=== PATIENT | female | born 1990 | race Caucasian/White ===

== ENCOUNTER 2022-10-05 10:29 | Outpatient (CLI) | payer OTHER, SELFPAY ==
[2022-10-05 11:34] LABS: Clue Cells No Clue Cells Seen (None Seen); Trichomonas No Trichomonas Seen (None Seen); Yeast No Yeast Seen (None Seen)
[2022-10-05 12:47] LABS: Cholesterol* 195 mg/dL (90-199)
[2022-10-05 12:48] LABS: HDL Cholesterol* 78 mg/dL (>=50); LDL Cholesterol Calculated 106 mg/dL (<100); Triglycerides* 55 mg/dL (40-149)
[2022-10-05 12:58] LABS: INR 0.92 (0.91-1.10)
[2022-10-05 12:59] LABS: Partial Thromboplastin Time* 33 Seconds (23-33)
[2022-10-05 13:10] LABS: Vitamin D 25 Hydroxy* 28 ng/mL (30-80)
[2022-10-05 13:23] LABS: Hepatitis B Surface Antigen* Negative (Negative)
[2022-10-05 13:33] LABS: HIV 1/2/P24 Combo Screen* Negative (Negative)
[2022-10-05 13:41] LABS: Hepatitis C Virus Antibody* Negative (Negative)
[2022-10-05 20:57] LABS: Chlamydia DNA Amplified* NOT DETECTED (No Detected); GC DNA Amplified* NOT DETECTED (No Detected)
[2022-10-08 02:25] LABS: Rapid Plasma Reagin (RPR) Non Reactive (Non Reactive)
[2022-10-10 22:00] LABS: von WillebrandFactorAntigen 89 % (52-214); vonWillebrandFactorActivityRCF 108 % (51-215)
== END 2022-10-05 10:30 | disposition home or self-care (01) ==
PROVIDERS: PCP Dermatology; Visit Provider Registered Nurse
DX: R03.0 Elevated blood-pressure reading, without diagnosis of hypertension (principal); R53.83 Other fatigue; Z11.4 Encounter for screening for human immunodeficiency virus [HIV]; R58 Hemorrhage, not elsewhere classified; R23.3 Spontaneous ecchymoses; Z11.3 Encounter for screening for infections with a predominantly sexual mode of transmission
CPT/HCPCS: 80061; 82306; 84443; 85240; 85245; 85246; 85610; 85730; 86592; 86703; 86803; 87210; 87340; 87491; 87591

== ENCOUNTER 2022-10-11 18:18 | Emergency (ER) | payer OTHER, SELFPAY ==
[2022-10-11] VITALS (8 sets, daily range): BP systolic 129–153; BP diastolic 85–98; PULSE 88–98; RESP 16; TEMP 36.8; O2SAT 97–100; BMI 26.7
--- NOTE | 2022-10-11 19:38 | ED.ABDPAIN ---
HPI - Abdominal Pain General Time Seen by Provider: 19:38 Date Seen: 10/11/22 Chief Complaint: Abdominal Pain Stated Complaint: Severe lower abdomen pain Time Seen by Provider: 10/11/22 18:27 Source: patient, RN notes reviewed and old records reviewed Mode of arrival: ambulatory Limitations: no limitations History of Present Illness HPI narrative: Dylan is a very pleasant 32-year-old female with history of 1 year ago who comes to the emergency room with lower abdominal pain times 36 hours. Patient noted the onset of right lower quadrant pain yesterday morning. It persisted throughout the day waxing and waning and even awoke her overnight last night. She comes in today as it continues to worsen. It is associated with nausea although she has been able to eat. It is also associated with a small amount of nonbloody diarrhea and a significant amount of burping and abdominal gas. Patient states that she does feel bloated. She has not had history of abdominal problems in the past. She denies dysuria or hematuria or recent fever. She rates her pain a 7/10 right now. She has not taken anything for discomfort. Her period ended 1 week ago. She is not on control. Movement and pressing on the abdomen appears to increase her discomfort. Patient states she does have a history of ovarian cyst. Related Data Home Medications Medication Instructions Recorded Confirmed biotin PO QDAY 10/07/22 10/07/22 melatonin 10 mg capsule 10 mg PO QHS 10/07/22 10/07/22 Allergies Allergy/AdvReac Type Severity Reaction Status Date / Time house dust AdvReac Intermediate Verified 10/11/22 21:42 Cultivated oat pollen AdvReac Intermediate Uncoded 10/11/22 21:42 Review of Systems Status of ROS Reports: 10 or more systems reviewed and unremarkable except as noted in History and below Const Denies: fever or chills Eyes Denies: change in vision ENMT Denies: throat pain, neck pain, throat swelling or difficulty swallowing Cardio Denies: shortness of breath with exertion Resp Denies: shortness of breath, cough or wheezing GI Reports: abdominal pain, nausea, bloating and excessive passing of gas; Denies: vomiting, diarrhea or difficulty swallowing Denies: painful urination, urinary frequency or urinary urgency Musculo Denies: back pain, neck pain or extremity pain Integ/Breast Denies: rash Neuro Denies: headache Allergy/Immuno Denies: throat swelling or wheezing PFSH PFSH Medical History Anemia Female infertility Major depression, recurrent Migraines Preeclampsia Surgical History S/P section Family History Mother High blood pressure Family/Other Leukemia Maternal Grandmother High blood pressure Social History Narrative: , no kids Smoking Status: Never smoker Little interest or pleasure in doing things: not at all Feeling down, depressed, or hopeless: more than half the days Exam Narrative: Exam Narrative: Dylan is alert and oriented. She does have some nervousness. She is very pleasant well-spoken. Eyes are clear oral cavity with moist mucous membranes. Clearly visualized posterior oropharynx. Dentition is intact. Neck is supple without lymphadenopathy. Heart with regular rate and rhythm. Lungs are clear in all lung [place]. Abdomen is soft that there is no distension. Bowel sounds are present. She does have right lower quadrant tenderness and rebound is present. She has pain in her right lower quadrant with straight leg Reg raise and internal external rotation of the hip. Moving all extremities otherwise. Const: Vital Signs, click to edit/add: Vital Signs - 24 hr 10/11/22 18:41 10/11/22 20:04 10/11/22 19:54 Temperature 98.2 F Pulse Rate 98 Pulse Rate [Left P ulse Oximeter] 88 Respiratory Rate 16 16 Blood Pressure 153/97 H Blood Pressure [Ri ght Upper Arm] 150/93 H Pulse Oximetry 99 100 98 Oxygen Delivery Me thod Room Air 10/11/22 20:02 10/11/22 20:31 10/11/22 22:05 Temperature Pulse Rate 91 92 91 Pulse Rate [Left P ulse Oximeter] Respiratory Rate 16 16 16 Blood Pressure 142/98 H 140/94 H 130/91 H Blood Pressure [Ri ght Upper Arm] Pulse Oximetry 100 100 100 Oxygen Delivery Me thod 10/11/22 22:18 10/11/22 22:32 10/12/22 00:05 Temperature 98.2 F Pulse Rate 94 84 Pulse Rate [Left P ulse Oximeter] Respiratory Rate 16 16 Blood Pressure 129/85 135/78 Blood Pressure [Ri ght Upper Arm] Pulse Oximetry 97 97 Oxygen Delivery Me thod 10/12/22 00:31 10/12/22 00:35 Temperature 98.2 F 97.9 F Pulse Rate Pulse Rate [Left P ulse Oximeter] 88 Respiratory Rate 16 Blood Pressure Blood Pressure [Ri ght Upper Arm] 150/93 H Pulse Oximetry Oxygen Delivery Me thod Documenting provider has reviewed patient's vital signs: yes Course Course Hospital Course: Differential diagnosis includes but is not limited to ectopic , appendicitis, colitis, ureteral colic, ovarian torsion, ovarian cyst. UTI. Patient is highly suspicious for appendicitis at this time. Will have an IV placed and patient will be given normal saline and Zofran. She declines any pain medications at this time. Will check CBC, comprehensive, CRP, urinalysis, hCG. Will wait for negative hCG prior to CT of the abdomen and pelvis. Reevaluation(s) Reevaluation #1: Patient is informed that CT of the abdomen is normal. I was very surprised after patient's history and exam findings. At this time will order pelvic ultrasound. Patient is receptive to Toradol 15 mg IV at this time. Reevaluation #2: Patient had relief with Toradol 15 mg. Discussed with patient hemorrhagic cyst of right ovary noted on ultrasound. Vital Signs Vital signs: Initial Vital Signs Temperature 98.2 F 10/11/22 18:41 Temperature Source Temporal Artery Scan 10/11/22 18:41 Pulse Rate 88 10/11/22 18:41 Pulse Rhythm 10/11/22 18:41 Pulse Strength 3+ Normal 10/11/22 18:41 Respiratory Rate 16 10/11/22 18:41 Blood Pressure 150/93 H 10/11/22 18:41 Blood Pressure Mean 112 10/11/22 18:41 Blood Pressure Position Sitting 10/11/22 18:41 Pulse Oximetry 99 10/11/22 18:41 Oxygen Delivery Method 10/11/22 18:41 Vital Signs Temperature 98.2 F 10/11/22 18:41 Pulse Rate 88 10/11/22 18:41 Respiratory Rate 16 10/11/22 18:41 Blood Pressure 150/93 H 10/11/22 18:41 Pulse Oximetry 99 10/11/22 18:41 Oxygen Delivery Method 10/11/22 18:41 Temperature 97.9 F 10/12/22 00:35 Pulse Rate 88 10/12/22 00:31 Respiratory Rate 16 10/12/22 00:31 Blood Pressure 150/93 H 10/12/22 00:31 Pulse Oximetry 97 10/12/22 00:05 Oxygen Delivery Method 10/11/22 18:41 MDM - Abdominal Pain MDM Narrative Medical decision making narrative: 1. Abdominal pain- patient had normal CT in spite of symptoms and exam suggestive of appendicitis. Given intensity of discomfort did proceed with ultrasound of pelvis that showed a 1.7 cm complex cyst of the right ovary thought to be hemorrhagic in nature. There was no free fluid in the abdomen. Patient is feeling better after Toradol. Will discharge her home at this time. She may use ibuprofen every 8 hours as needed for discomfort. She declines any stronger pain medication at this time. Note that she does also show me recent lab values including a negative GC and chlamydia at her well-woman check. She denies any vaginal discharge. She has been experiencing diarrhea and this may be a small focal colitis not noted on CT that is causing her the discomfort. I have advised her to return for increasing fever increasing pain and as needed. 2. Disposition -Home at this time. Return as needed. Medical Records Attestation: I reviewed the patient's medical records. Lab Data Attestation: I reviewed the patient's lab results. Labs: Lab Results 10/11/22 10/11/22 10/11/22 Range/Units 19:40 19:50 19:50 WBC 12.49 H (4.50-11.00) K/uL RBC 4.22 (4.00-5.20) m/uL Hgb 13.3 (12.0-16.0) gm/dL Hct 39.4 (33.0-51.0) % MCV 93 (80-100) fL MCH 32 (26-34) pg MCHC 34 (32-36) gm/dL RDW Coeff of [place] 12.5 (11.5-15.5) % Plt Count 272 (140-440) K/uL Neut % (Auto) 73.3 H (42.0-72.0) % Lymph % (Auto) 19.1 L (20-44) % [place] % (Auto) 6.5 (0.0-11.0) % Eos % (Auto) 0.7 (0.0-7.0) % Baso % (Auto) 0.2 (0.0-3.0) % Neut # (Auto) 9.20 H (1.7-7.0) K/uL Lymph # (Auto) 2.40 (0.90-2.90) K/uL [place]ike # (Auto) 0.80 (0.00-0.90) K/UL Eos # (Auto) 0.10 (0.00-0.50) K/uL Baso # (Auto) 0.00 (0.00-0.30) K/uL Sodium (135-149) mmol/L Potassium (3.6-5.1) mmol/L Chloride (96-114) mmol/L Carbon Dioxide (20-32) mmol/L BUN (5-24) mg/dL Creatinine (0.5-1.5) mg/dL Estimated Creat Clear Estimated GFR ml/min Glucose (60-115) mg/dL Calcium (8.4-10.6) mg/dL Total Bilirubin (0.1-1.5) mg/dL AST (12-35) U/L ALT (4-35) U/L Alkaline Phosphatase (40-150) U/L C-Reactive Protein (0.5-1.0) mg/dL Total Protein (6.0-8.3) g/dL Albumin (3.3-5.0) g/dL Urine Color Yellow (Yellow) Urine Appearance Clear (Clear) Urine pH 6.0 (5.0-8.5) Ur Specific [place] 1.020 (1.000-1.030) Urine Protein Negative (Negative) Urine Glucose (UA) Negative (Negative) Urine Ketones Negative (Negative) Urine Blood Negative (Negative) Urine Nitrite Negative (Negative) Urine Bilirubin Negative (Negative) Urine Urobilinogen 0.2 (0.2-1.0) Ur Leukocyte Esterase Negative (Negative) Urine HCG, Qual Negative (Negative) 10/11/22 Range/Units 19:50 WBC (4.50-11.00) K/uL RBC (4.00-5.20) m/uL Hgb (12.0-16.0) gm/dL Hct (33.0-51.0) % MCV (80-100) fL MCH (26-34) pg MCHC (32-36) gm/dL RDW Coeff of [place] (11.5-15.5) % Plt Count (140-440) K/uL Neut % (Auto) (42.0-72.0) % Lymph % (Auto) (20-44) % [place] % (Auto) (0.0-11.0) % Eos % (Auto) (0.0-7.0) % Baso % (Auto) (0.0-3.0) % Neut # (Auto) (1.7-7.0) K/uL Lymph # (Auto) (0.90-2.90) K/uL [place] # (Auto) (0.00-0.90) K/UL Eos # (Auto) (0.00-0.50) K/uL Baso # (Auto) (0.00-0.30) K/uL Sodium 141 (135-149) mmol/L Potassium 3.4 L (3.6-5.1) mmol/L Chloride 105 (96-114) mmol/L Carbon Dioxide 25 (20-32) mmol/L BUN 10 (5-24) mg/dL Creatinine 0.7 (0.5-1.5) mg/dL Estimated Creat Clear 92.10 Estimated GFR 119 ml/min Glucose 103 (60-115) mg/dL Calcium 9.2 (8.4-10.6) mg/dL Total Bilirubin 0.5 (0.1-1.5) mg/dL AST 26 (12-35) U/L ALT 19 (4-35) U/L Alkaline Phosphatase 71 (40-150) U/L C-Reactive Protein 0.8 (0.5-1.0) mg/dL Total Protein 8.1 (6.0-8.3) g/dL Albumin 4.7 (3.3-5.0) g/dL Urine Color (Yellow) Urine Appearance (Clear) Urine pH (5.0-8.5) Ur Specific [place] (1.000-1.030) Urine Protein (Negative) Urine Glucose (UA) (Negative) Urine Ketones (Negative) Urine Blood (Negative) Urine Nitrite (Negative) Urine Bilirubin (Negative) Urine Urobilinogen (0.2-1.0) Ur Leukocyte Esterase (Negative) Urine HCG, Qual (Negative) Imaging Data CT scan - abdomen: Attestation: I have reviewed the pertinent imaging results. Radiologist's impression: Liver: Unremarkable. Normal in size and attenuation. No suspicious masses. Gallbladder and bile ducts: Unremarkable. No stones or inflammation. No biliary dilatation. Pancreas: Unremarkable. No mass or inflammation. Spleen: Unremarkable. Normal in size. No masses. Adrenal glands: Unremarkable. No nodules. Kidneys: Unremarkable. No suspicious masses, stones, or hydronephrosis. GI tract: Unremarkable. Normal in caliber. No sign of inflammation. Normal appendix. Vasculature: Abdominal aorta is normal in caliber. Mesenteric arteries are patent. Lymph nodes: No lymphadenopathy. Peritoneum/Abdominal Wall: Unremarkable. No free air or free fluid. Pelvis: Unremarkable. Bones: Unremarkable for age. IMPRESSION: Unremarkable CT of the abdomen and pelvis. No acute findings or findings to explain the patient`s abdominal pain. Pelvic ultrasound: Attestation: I have reviewed the pertinent imaging results. Radiologist's impression: Uterus: Anteverted uterus measuring 8.5 x 3.5 x 5.2 cm. Homogeneous echotexture. No suspicious lesion.? Endometrium: Endometrial stripe measures 8 mm in thickness.? No endometrial polyp or mass identified.? Right ovary: Measures 3.3 x 2.0 x 2.7 cm. Intact blood flow. Right ovarian heterogeneous cystic appearing lesion containing multiple linear/reticular septations measuring 1.7 x 1.0 x 1.7 cm. Left ovary: Measures? 3.6 x 1.7 x 2.3 cm. Intact blood flow. No suspicious lesion. Free Fluid: negative. IMPRESSION: 1. Right ovarian 1.7 cm heterogeneous cystic lesion is indeterminate but likely a hemorrhagic cyst. 2. Otherwise negative pelvic ultrasound. Discharge Plan Discharge Clinical Impression: Abdominal pain, Hemorrhagic cyst of right ovary Patient Disposition: Home, Self-Care Condition: Improved Additional Instructions: Recommend ibuprofen every 8 hours as needed for pain. Return to the emergency room for fever, increasing pain, persistent vomiting and as needed. Prescriptions: No Action biotin PO QDAY melatonin 10 mg capsule 10 mg PO QHS Follow Up/Referrals: Dom Hastings MD, FAAD [Primary Care Provider] - Stand Alone Forms: [employer] Info Instructions
[2022-10-11 19:52] LABS: Appearance Urine Clear (Clear); Bilirubin Urine Negative (Negative); Blood Urine Negative (Negative); Color Urine Yellow (Yellow); Glucose Urine Negative (Negative); Ketones Urine Negative (Negative); Leukocyte Esterase Urine Negative (Negative); Nitrite Urine Negative (Negative); Protein Urine Negative (Negative); Urobilinogen Urine 0.2 (0.2-1.0)
[2022-10-11] MEDS: 0.9 % SODIUM CHLORIDE 1000 ml 1,000 ML IV (19:52)
[2022-10-11] MEDS: ONDANSETRON 2 MG/ML inj 4 MG IVP (19:53)
[2022-10-11 19:59] LABS: Basophils Percent Auto 0.2 % (0.0-3.0); Eosinophils Percent Auto 0.7 % (0.0-7.0); Hematocrit 39.4 % (33.0-51.0); Hemoglobin* 13.3 gm/dL (12.0-16.0); Immature Granulocytes Pct Auto 0.2 %; Lymphocytes Percent Auto 19.1 % (20-44); Mean Corpuscular HGB Conc 34 gm/dL (32-36); Mean Corpuscular Hemoglobin 32 pg (26-34); Mean Corpuscular Volume 93 fL (80-100); Monocytes Percent Auto 6.5 % (0.0-11.0); Neutrophils Percent Auto 73.3 % (42.0-72.0); Platelet Count* 272 K/uL (140-440); RDW Coefficient of Variation % 12.5 % (11.5-15.5); Red Blood Count 4.22 m/uL (4.00-5.20); White Blood Count* 12.49 K/uL (4.50-11.00)
[2022-10-11 20:03] LABS: Slide Review Reflex No
[2022-10-11 20:24] LABS: Albumin* 4.7 g/dL (3.3-5.0); Chloride* 105 mmol/L (96-114)
[2022-10-11 20:25] LABS: Potassium* 3.4 mmol/L (3.6-5.1); Sodium* 141 mmol/L (135-149)
[2022-10-11 20:27] LABS: Alkaline Phosphatase* 71 U/L (40-150); Aspartate Amino Transferase* 26 U/L (12-35); Bilirubin Total* 0.5 mg/dL (0.1-1.5); Carbon Dioxide* 25 mmol/L (20-32); Creatinine* 0.7 mg/dL (0.5-1.5); Estimated Glomerular Filt Rate 119 ml/min; Total Protein* 8.1 g/dL (6.0-8.3)
[2022-10-11 20:28] LABS: Alanine Aminotransferase* 19 U/L (4-35); Blood Urea Nitrogen* 10 mg/dL (5-24); Calcium* 9.2 mg/dL (8.4-10.6); Glucose* 103 mg/dL (60-115)
[2022-10-11 20:29] LABS: Ur HCG Qualitative* Negative (Negative)
[2022-10-11 20:30] LABS: C Reactive Protein* 0.8 mg/dL (0.5-1.0)
--- NOTE | 2022-10-11 20:38 | CRLHL7_ITS ---
For Patients: As a result of the Century Cures Act, medical imaging exams and procedure reports are released immediately into your electronic medical record. You may view this report before your referring provider. If you have questions, please contact your health care provider. INDICATION: Severe abdominal pain. TECHNIQUE: CT abdomen and pelvis acquired with 69 cc Isovue 370 IV contrast. COMPARISON: None. FINDINGS: Lower chest: Unremarkable. Liver: Unremarkable. Normal in size and attenuation. No suspicious masses. Gallbladder and bile ducts: Unremarkable. No stones or inflammation. No biliary dilatation. Pancreas: Unremarkable. No mass or inflammation. Spleen: Unremarkable. Normal in size. No masses. Adrenal glands: Unremarkable. No nodules. Kidneys: Unremarkable. No suspicious masses, stones, or hydronephrosis. GI tract: Unremarkable. Normal in caliber. No sign of inflammation. Normal appendix. Vasculature: Abdominal aorta is normal in caliber. Mesenteric arteries are patent. Lymph nodes: No lymphadenopathy. Peritoneum/Abdominal Wall: Unremarkable. No free air or free fluid. Pelvis: Unremarkable. Bones: Unremarkable for age. IMPRESSION: Unremarkable CT of the abdomen and pelvis. No acute findings or findings to explain the patient`s abdominal pain. Please note that all CT scans at this facility use dose modulation, iterative reconstruction, and/or weight-based dosing when appropriate to reduce radiation dose to as low as reasonably achievable. Dictated by Otf Martínez MD @ 10/11/2022 10:08:21 PM (Electronically Signed)
--- NOTE | 2022-10-11 22:12 | CRLHL7_ITS ---
For Patients: As a result of the Century Cures Act, medical imaging exams and procedure reports are released immediately into your electronic medical record. You may view this report before your referring provider. If you have questions, please contact your health care provider. INDICATION: Pelvic pain. TECHNIQUE: Ultrasound pelvis endovaginal utilizing grayscale, color Doppler, and spectral Doppler sonography. COMPARISON: Earlier same day CT. FINDINGS: Uterus: Anteverted uterus measuring 8.5 x 3.5 x 5.2 cm. Homogeneous echotexture. No suspicious lesion. Endometrium: Endometrial stripe measures 8 mm in thickness. No endometrial polyp or mass identified. Right ovary: Measures 3.3 x 2.0 x 2.7 cm. Intact blood flow. Right ovarian heterogeneous cystic appearing lesion containing multiple linear/reticular septations measuring 1.7 x 1.0 x 1.7 cm. Left ovary: Measures 3.6 x 1.7 x 2.3 cm. Intact blood flow. No suspicious lesion. Free Fluid: negative. IMPRESSION: 1. Right ovarian 1.7 cm heterogeneous cystic lesion is indeterminate but likely a hemorrhagic cyst. 2. Otherwise negative pelvic ultrasound. Dictated by Pete Andrade MD @ 10/11/2022 11:37:57 PM Dictated by: Pete Andrade MD @ 10/11/2022 23:38:03 (Electronically Signed)
[2022-10-11] MEDS: KETOROLAC 15 MG/ML inj IVP (22:18)
[2022-10-12 00:05] VITALS: BP 135/78; PULSE 84; RESP 16; O2SAT 97
[2022-10-12 00:31] VITALS: BP 150/93; PULSE 88; RESP 16; TEMP 36.8
[2022-10-12 00:35] VITALS: TEMP 36.6
== END 2022-10-12 00:32 | disposition home or self-care (01) ==
PROVIDERS: Emergency Medicine Emergency Medical Services; Emergency Provider Family Medicine; PCP Dermatology
DX: N83.201 Unspecified ovarian cyst, right side (principal)
CPT/HCPCS: 36415; 74177; 76830; 80053; 81003; 81025; 85025; 86140; 93976; 94761; 96374; 96375; 99284; 99285; J1885; J2405; J7030; Q9967